=== PATIENT | male | born 1950 | race Caucasian/White ===

== ENCOUNTER → 2016-08-02 | Outpatient (CLI) | payer OTHER | END | disposition home or self-care (01) | LOC: GMAM 13:04 | PROVIDERS: ATTEND Family Medicine | DX: E83.52 Hypercalcemia (principal) ==

== ENCOUNTER → 2016-11-07 | Outpatient (CLI) | payer OTHER ==
--- NOTE | 2016-11-07 17:06 | CT ---
EXAM DESCRIPTION: Abdomen/Pelvis w/wo Contrast CLINICAL HISTORY: 66 years Male GENERALIZED ABDOMINAL PAIN COMPARISON: None. TECHNIQUE: Contiguous axial images obtained through the abdomen and pelvis following IV contrast. Reformatted images obtained. This exam was performed according to our department optimization program which includes automated exposure control, adjustment of the mA and/or kv according to patient size and/or use of iterative reconstruction technique. FINDINGS: The liver appears unremarkable. The spleen and pancreas appear unremarkable. No adrenal masses. No acute abnormality of the kidneys. 4.8 cm cyst on the right and 1 cm cyst on the left. The gallbladder is visualized. No aneurysmal dilatation of the aorta. Calcification in aorta and its branches. No bowel obstruction. The appendix is unremarkable. There is diverticulosis in the colon without evidence of diverticulitis. There is a small fluid attenuation ovoid lesion in the first portion of the duodenum uncertain clinical significance. Question small cyst. This measures 1.5 cm. IMPRESSION: No acute abnormality noted Diverticulosis Cystic lesion in the first portion of the duodenum of uncertain clinical significance. Consider further evaluation with endoscopy Electronically signed by: Bell Welch 11/07/2016 5:04 PM CDT
== END | disposition home or self-care (01) ==
LOC: CT 15:10
PROVIDERS: ATTEND Family Medicine
DX: R10.84 Generalized abdominal pain (principal)

== ENCOUNTER → 2017-01-31 | Outpatient (CLI) | payer MEDICARE, OTHER | END | disposition home or self-care (01) | LOC: GMAM 10:06 | PROVIDERS: ATTEND Family Medicine | DX: E83.52 Hypercalcemia (principal) ==

== ENCOUNTER → 2017-08-02 | Outpatient (CLI) | payer MEDICARE, OTHER | LOC: GMAM 10:43 | PROVIDERS: ATTEND Family Medicine | DX: E83.52 Hypercalcemia (principal); Z12.5 Encounter for screening for malignant neoplasm of prostate | CPT/HCPCS: 83970; G0103 ==

== ENCOUNTER → 2017-11-28 | Outpatient (CLI) | payer MEDICARE, OTHER ==
--- NOTE | 2017-11-28 09:11 | RAD ---
EXAM DESCRIPTION: Wrist,Left 3 Views CLINICAL HISTORY: 67 years Male, LOCALIZED SWELLING , MASS AND LUMP, UNSPECIFIED COMPARISON: None. FINDINGS: Three views of the left wrist show no acute fracture or malalignment. There are fairly advanced degenerative changes involving the first CMC joint including joint space narrowing and osteophyte formation. Less advanced degenerative changes are noted at the triscaphe joint. No focal bone lesion or periostitis. No radiopaque foreign body or soft tissue gas. 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 Electronically signed by: Abel De La Rosa MD 11/28/2017 9:10 AM CDT
== END ==
LOC: RAD 08:01
PROVIDERS: ATTEND Orthopaedic Surgery
DX: Z01.818 Encounter for other preprocedural examination (principal); R22.9 Localized swelling, mass and lump, unspecified

== ENCOUNTER → 2017-12-09 | Outpatient (CLI) | payer MEDICARE, OTHER ==
--- NOTE | 2017-12-09 15:48 | CT ---
Procedure: CT LUNG SCREENING Exam Date: December 09, 2017. Ordering Provider: Jose Antonio Hurd Clinical Indication: LUNG SCREEN This patient meets eligibility criteria for low-dose CT lung cancer screening. 120 pack years. Comparison: CT scan of the abdomen 11/07/2016. Technique: Using a multislice scanner, sequential helical axial imaging was obtained in the thorax, 2.5 mm thickness, 2.5 mm separation, from the level of the thoracic inlet through the lung bases without IV contrast. A low dose protocol was utilized. CTDI: 1.75 mGy. 120. kVp. 45 mA. 2D sagittal and coronal reconstructed images, 6.0 mm thickness, were obtained. This exam was performed according to our departmental dose optimization program which includes use of automated exposure control, adjustment of the mA and/or kV according to patient size and/or use of iterative reconstruction technique. FINDINGS: Lungs and large airways: Minimally prominent airspaces in the bilateral upper lung buchanan less prevalent toward the lung bases bilaterally. Minimal groundglass density in the left retrohilar pulmonary recess of the medial right lower lobe. Slight dilation of the bilateral lower lobe bronchi relatively symmetric. Pleura: No effusion or pneumothorax bilaterally. Mediastinum and alton: Limited by screening technique and lack of IV contrast. No large soft tissue masses or markedly abnormal appearing lymph nodes. Heart and great vessels: Atherosclerotic calcifications in the thoracic aorta. Coronary artery calcifications. Chest wall, lower neck, axillae: Small lymph nodes. Thyroid gland is not enlarged. Tissue around the thyroid gland difficult to visualize due to artifact from shoulder girdles and ribs and spine. Upper abdomen: In the included intraperitoneal cavity, no free fluid or air or focal intraperitoneal mass. Bones: Spondylosis at multiple levels of the thoracic spine with no lytic or blastic lesions. Other osseous structures are grossly normal. IMPRESSION: Early emphysematous changes more prevalent in the upper lobes. Chronic versus acute groundglass density medial right lower lobe in the right retrohilar recess. No abnormal nodules were seen. Lung RADS category Category 1 - No nodule or definitely benign nodules (probability of malignancy less than 1%). Follow-up: Continue annual screening with Low Dose Chest CT in 12 months Electronically signed by: Antonio Bennett MD 12/09/2017 3:46 PM CDT
== END ==
LOC: CT 09:00
PROVIDERS: ATTEND Family Medicine
DX: Z87.891 Personal history of nicotine dependence (principal)

== ENCOUNTER 2017-12-11 05:58 | Day surgery (SDC) | payer MEDICARE, OTHER ==
[2017-12-11] MEDS ORDERED: ceFAZolin SODIUM 1 GM VIAL ONE ×2 (06:19→07:28)
[2017-12-11] MEDS ORDERED: LACTATED RINGERS 1,000 ML ONE (06:19)
[2017-12-11] MEDS ORDERED: SODIUM CHL 0.9% 100ML MINI-BAG 100 ML IVPB ONE (06:19)
[2017-12-11] MEDS ORDERED: VANCOMYCIN HCL INJ 1,000 MG VIAL IVPB ONE (07:28)
[2017-12-11] MEDS ORDERED: BUPIVACAINE 0.25% INJ 30 ML VIAL INJ ONE (07:28)
[2017-12-11] MEDS ORDERED: LIDOCAINE 1% 10 ML VIAL INJ ONE ×2 (07:28→10:00)
[2017-12-11] MEDS ORDERED: MIDAZOLAM INJ 2 MG/2 ML VIAL ONE (09:42)
[2017-12-11] MEDS ORDERED: fentaNYL CITRATE INJ 50 MCG/ML AMP ONE (09:43)
[2017-12-11] MEDS ORDERED: PROPOFOL 200 MG/20 ML VIAL IV ONE (10:00)
[2017-12-11 13:20] VITALS: BP 147/80; TEMP 96.6; O2SAT 100
--- NOTE | 2017-12-13 11:31 | OP ---
DATE OF PROCEDURE: 12/11/17 PREOPERATIVE DIAGNOSIS: 1. Ganglion cyst of the wrist. POSTOPERATIVE DIAGNOSIS: 1. Ganglion cyst of the wrist. PROCEDURE: 1. Excision of cyst. SURGEON: Scott Leach MD INFLATED BALL MOLDER: Antonio Del Cdi CST, SA-C. ANESTHESIA: Local with sedation. COMPLICATIONS: None. FINDINGS: Approximately 1 cm cyst arising from the volar radial aspect of the wrist. INDICATION: Mr. Solano has a slow growing and fluctuating in size mass on his wrist. It caused local irritation and because of the ongoing nature, he requested operative intervention. After discussing the risks, benefits and alternatives to operative intervention, he gave informed consent for excision. PROCEDURE: The patient was brought to the Operating Room and placed in supine position. Sedation was administered and local anesthetic was injected into the operative area. Following that, an incision was made directly over the cystic mass. All soft tissues were dissected off the mass and the cyst was transected at its base. The wound was very thoroughly irrigated and closed with Nylon suture. Sterile dressing was placed. The patient was awoken from anesthesia and then taken to Recovery. POSTOPERATIVE PLAN: He will be doing range of motion of the digits and followup with us in two days. #[id number] [facility]
== END 2017-12-11 11:25 | disposition home or self-care (01) ==
LOC: AMB 05:58
PROVIDERS: ATTEND Orthopaedic Surgery
DX: M67.432 Ganglion, left wrist (principal); I10 Essential (primary) hypertension; K21.9 Gastro-esophageal reflux disease without esophagitis; J44.9 Chronic obstructive pulmonary disease, unspecified; F41.9 Anxiety disorder, unspecified; Z87.891 Personal history of nicotine dependence; Z79.899 Other long term (current) drug therapy
CPT/HCPCS: 01810; 25111; 88304; J0690; J2250; J3010; J3370; J3490; J7050; J7120

== ENCOUNTER → 2018-01-24 | Outpatient (CLI) | payer MEDICARE, OTHER | LOC: GMAM 11:22 | PROVIDERS: ATTEND Family Medicine | DX: I10 Essential (primary) hypertension (principal); Z12.5 Encounter for screening for malignant neoplasm of prostate | CPT/HCPCS: 84439; 84443; G0103 ==

== ENCOUNTER 2018-05-19 09:23 | Emergency (ER) | payer MEDICARE, OTHER ==
[2018-05-19 09:40] VITALS: TEMP 96
--- NOTE | 2018-05-19 09:46 | ED.PDOC ---
History of Present Illness - General Chief Complaint: GI Problem Stated Complaint: blood in stools Time Seen by Provider: 05/19/18 09:45 Information Source: patient Exam Limitations: no limitations - History of Present Illness Initial Comments: Audrey Solano 68 y/o male stated had noted blood in his stool since 17 May 2018 denies hematemesis,abdominal pain,or diarrhea.Had colonoscopy last year done by Dr. Alonzo-proofreader.No dizziness or lightheadedness. Abdominal Pain Onset Location: other - NO ABDOMINAL PAIN Pain Radiation: no radiation Timing/Duration: other - 3 days ago Improving Factors: nothing Worsening Factors: nothing Associated Symptoms: other - see hpi Review of Systems - Review of Systems Constitutional: States: no symptoms reported EENTM: States: no symptoms reported Respiratory: States: no symptoms reported Cardiology: States: no symptoms reported Gastrointestinal/Abdominal: States: see HPI Genitourinary: States: no symptoms reported All other Systems: Reviewed and Negative, No Change from Baseline Past Medical History (General) - Patient Medical History Hx of COPD: Yes Hx Congestive Heart Failure: No Hx Pacemaker: No Hx Hypertension: Yes Hx Diabetes: No Hx Gastroesophageal Reflux: Yes Hx Cancer: No Hx Hepatitis C: No Hx MRSA: No Surgical History: other - ankle - Vaccination History Hx Tetanus, Diphtheria Vaccination: No Hx Influenza Vaccination: Yes Hx Pneumococcal Vaccination: No Immunizations Up to Date: No - Social History Hx Alcohol Use: Yes - wine daily Hx Substance Use: No Hx Substance Use Treatment: No Hx Depression: No Hx Physical Abuse: No Hx Emotional Abuse: No - Activities of Daily Living Patient Lives Alone: No Family Medical History - Family History Mother Family History: Unknown Hx Family Diabetes: Yes - dad Hx Family Cancer: Yes - mom-brain Physical Exam - Physical Exam General Appearance: Alert, Comfortable, No apparent distress Eyes, Ears, Nose, Throat Exam: normal ENT inspection, pale conjunctivae (R), pale conjunctivae (L) Neck: non-tender, full range of motion, supple, normal inspection Respiratory: chest non-tender, lungs clear, normal breath sounds Cardiovascular/Chest: normal peripheral pulses, regular rate, rhythm, no murmur Peripheral Pulses: No deficit Gastrointestinal/Abdominal: non tender, soft Rectal Exam: normal rectal tone, black stool Extremity: no pedal edema, no calf tenderness Neurologic: alert, oriented x 3 Progress - Progress Progress: 05/19/18 10:07 Vital Signs - 8 hr 05/19/18 09:36 Temperature 96.0 F L Pulse Rate [ 72 monitor] Respiratory 18 Rate Blood Pressure 143/90 [LA] O2 Sat by Pulse 100 Oximetry - Results/Orders Results/Orders: 05/19/18 09:56 IV Care:Saline Lock per Protoc QSHIFT 05/19/18 10:00 TYPE AND SCREEN Stat Laboratory Results - last 24 hr 05/19/18 05/19/18 05/19/18 09:40 10:00 11:02 WBC 4.7 L RBC 3.52 L Hgb 10.8 L Hct 32.6 L MCV 92.7 MCH 30.7 MCHC 33.1 RDW 13.7 Plt Count 266 MPV 7.6 Absolute Neuts (auto) 2.50 Absolute Lymphs (auto) 1.50 Absolute Monos (auto) 0.50 Absolute Eos (auto) 0.20 Absolute Basos (auto) 0.00 Neutrophils % 52.6 Lymphocytes % 31.2 Monocytes % 11.5 H Eosinophils % 3.7 Basophils % 1.0 PT 10.4 INR 1.04 PTT (SP) 23.4 Sodium 138 Potassium 3.9 Chloride 104 Carbon Dioxide 24 Anion Gap 13.9 BUN 26 H Creatinine 1.14 BUN/Creatinine Ratio 22.8 H Random Glucose 85 Serum Osmolality 279.7 Calcium 9.6 Magnesium 1.7 L Total Bilirubin 0.6 Direct Bilirubin < 0.1 Indirect Bilirubin 0.5 AST 30 ALT 21 Alkaline Phosphatase 47 Creatine Kinase 144 CK-MB (CK-2) 1.0 CK-MB (CK-2) % Not Reportable Troponin I < 0.02 Serum Total Protein 7.2 Albumin 4.2 Urine Color Yellow Urine Appearance Clear Urine pH 6.5 Ur Specific [place] 1.020 Urine Protein Negative Urine Glucose (UA) Negative Urine Ketones Negative Urine Blood Negative Urine Nitrite Negative Urine Bilirubin Negative Urine Urobilinogen 0.2 Ur Leukocyte Esterase Negative Urine RBC 0 Urine WBC 0 Ur Epithelial Cells 0 Urine Bacteria 0 Stool Occult Blood Positive discuss test result with patient ; talked to Dr. Burrows has appt. at 0815 h 20 May 2018 declined further evaluation by GI specialist and want his primary Md to do the referral Departure - Departure Clinical Impression: Melena Time of Disposition: 13:37 Disposition: Discharge to Home or Self Care Condition: Fair Departure Forms: ED Discharge - Pt. Copy, Patient Portal Self Enrollment Instructions: Bloody Stools, Adult (DC), Bloody Stools Referrals: Lasha Burrows MD [Primary Care Provider] - 1-2 Weeks Home Medications: Ambulatory Orders Ascorbic Acid [Vitamin C] 500 mg PO DAILY 05/05/14 Aspirin [(None)] 325 mg PO QD 05/05/14 Bupropion HCl [Wellbutrin] 100 mg PO DAILY 05/05/14 Calcium Carb 500Mg-Vitamin D [Oscal 500mg w/D] 500 mg PO DAILY 05/05/14 Carisoprodol [Soma] 350 mg PO DAILY 05/05/14 Celecoxib [Celebrex] 200 mg PO DAILY 05/05/14 Cholecalciferol [Vitamin D3] 1,000 unit PO DAILY 05/05/14 Clonazepam 0.5 mg PO BID PRN 05/05/14 Coenzyme Q10 (Ubidecarenone) [Coq-10] 100 mg PO DAILY 05/05/14 Dicyclomine HCl 20 mg PO BID 05/05/14 Fexofenadine-Pseudoephedrine [Mckenzie-D 24 Hour Allergy 180-240 mg] 1 tab PO DAILY 05/05/14 Rcgbqzaqjyd-Gfryazbeavm-Vyd C- [Glucosamine 1500 Complex] 1 cap PO BID 05/05/14 Lubiprostone [Amitiza] 8 mcg PO DAILY 05/05/14 Niacin [Niacin Time Release] 500 mg PO DAILY 05/05/14 Pantoprazole Sodium 40 mg PO DAILY 05/05/14 Rosuvastatin [Crestor] 5 mg PO BEDTIME 05/05/14 Valsartan-Hydrochlorothiazide [Diovan Hct 80-12.5 mg] 1 tab PO DAILY 05/05/14 traMADol 37.5MG/APAP 325MG [Ultracet] 1 tab PO Q6-8H PRN 05/05/14 Additional Instructions: Return to emergency room as needed;Keep appointment with primary Md in am 20 May 2018
--- NOTE | 2018-05-19 10:11 | RAD ---
EXAM DESCRIPTION: Chest,1 View CLINICAL HISTORY: 68 years Male, copd COMPARISON: Previous study March 23, 1999 TECHNIQUE: AP portable chest. FINDINGS: Heart size is prominent with normal pulmonary vascularity. Prominent ascending aorta. No consolidating infiltrate. No pulmonary mass or worrisome nodule. No pneumothorax or pleural effusion. Bones are unremarkable. IMPRESSION: No acute process is identified in the chest. Electronically signed by: Latrell Ramos MD 05/19/2018 10:08 AM [facility]
[2018-05-19] MEDS ORDERED: PANTOPRAZOLE INJECTION 80 MG in SODIUM CHLORIDE 0.9% 100ML 80 ML IVPB ONE (11:24)
[2018-05-19] MEDS ORDERED: SODIUM CHLORIDE 0.9% 100ML 100 ML IVPB ONE (11:32)
[2018-05-19] MEDS ORDERED: PANTOPRAZOLE SODIUM IV 40 MG VIAL ONE (11:32)
[2018-05-19 15:35] VITALS: BP 136/84; O2SAT 98
== END 2018-05-19 13:53 | disposition home or self-care (01) ==
LOC: ER 09:23
DX: K92.1 Melena (principal); I10 Essential (primary) hypertension; K21.9 Gastro-esophageal reflux disease without esophagitis; J44.9 Chronic obstructive pulmonary disease, unspecified; Z79.899 Other long term (current) drug therapy
CPT/HCPCS: 71045; 80048; 80076; 81001; 82270; 82550; 82553; 84484; 85025; 85610; 85730; J7050

== ENCOUNTER → 2018-05-26 | Outpatient (CLI) | payer MEDICARE, OTHER | LOC: GMAM 17:14 | PROVIDERS: ATTEND Family Medicine | DX: K92.2 Gastrointestinal hemorrhage, unspecified (principal) ==

== ENCOUNTER 2018-05-27 10:49 | Outpatient (CLI) | payer MEDICARE, OTHER ==
[2018-05-27] MEDS ORDERED: SODIUM CHLORIDE 0.9% 1000ML 1,000 ML IVS ONE (10:50)
[2018-05-27] MEDS ORDERED: SODIUM CHLORIDE 0.9% 1000ML 1,000 ML IVS PRN (11:54)
[2018-05-27 12:16] VITALS: BP 106/75; TEMP 97.8; O2SAT 100
== END 2018-05-27 16:08 | disposition home or self-care (01) ==
LOC: INFRM 10:49
PROVIDERS: ATTEND Family Medicine
DX: K92.2 Gastrointestinal hemorrhage, unspecified (principal)
CPT/HCPCS: 96360; 96361; G0463; J7030

== ENCOUNTER → 2018-08-19 | Outpatient (CLI) | payer MEDICARE, OTHER ==
--- NOTE | 2018-08-19 17:34 | RAD ---
EXAM DESCRIPTION: Barium Swallow: Rad-Fluoroscopy. CLINICAL HISTORY: DYSPHAGIA COMPARISON: None TECHNIQUE: The patient swallowed barium pill with water. The patient swallowed gas-producing granules, water, and heavy density barium under fluoroscopic visualization. The images were obtained with the patient horizontal and upright. Patient drank medium density barium through a straw in the semi-prone position. 89 fluoroscopic cine loop images. 10 static fluoroscopic images. Total fluoroscopy time was less than 4 minutes. DAP: 36.19 Gy-cm2.. FINDINGS: Patient swallowed the barium pill with water and there was minimal delay at the gastroesophageal junction before the pill passed into the body of the stomach. The swallowing mechanism was grossly normal with no laryngeal aspiration. Patient had swallowed at least twice with each mouthful of barium. Minimal delay in emptying the left piriform sinus. No significant narrowing or dilation of the esophagus. No extrinsic mass effect. No. Mucosal abnormality. In the distal third of the esophagus there were intermittent secondary and tertiary contractions. These were more prominent with patient swallowing in semiprone position. Gastroesophageal reflux was noted to the level of the midesophagus. No hiatal hernia. No mass effect on the stomach IMPRESSION: 1. No significant abnormality in the swallowing mechanism. No laryngeal aspiration. 2. No mass effect. In the esophagus No mucosal abnormality. 3. Secondary and tertiary contractions in the distal third esophagus with mostly with patient in prone position 4. Gastroesophageal reflux to the level of the tracheal chepe when moving in the horizontal position. No hiatal hernia. Electronically signed by: Antonio Bennett MD 08/19/2018 5:32 PM CDT
== END ==
LOC: RAD 09:00
PROVIDERS: ATTEND Internal Medicine Gastroenterology
DX: R13.10 Dysphagia, unspecified (principal); K21.9 Gastro-esophageal reflux disease without esophagitis

== ENCOUNTER → 2018-09-05 | Outpatient (CLI) | payer MEDICARE, OTHER | LOC: CT 11:00 | PROVIDERS: ATTEND Otolaryngology | DX: J38.7 Other diseases of larynx (principal); M47.892 Other spondylosis, cervical region ==

== ENCOUNTER → 2018-12-10 | Outpatient (CLI) | payer MEDICARE, OTHER ==
--- NOTE | 2018-12-11 13:13 | CT ---
Procedure: CT LUNG SCREENING Exam Date: 12/10/2018. Ordering Provider: Jose Antonio Hurd Clinical Indication: PERSONAL HISTORY OF TOBACCO USE . Current cigarette smoker. 120 pack years. This patient meets eligibility criteria for low-dose CT lung cancer screening. Comparison: Low-dose CT lung cancer screening December 09, 2017. Soft tissue neck CT scan with contrast August 2018. Technique: Using a multislice scanner, sequential helical axial imaging was obtained in the thorax, 2.5 mm thickness, 2.5 mm separation, from the level of the thoracic inlet through the lung bases without IV contrast. A low dose protocol was utilized for BMI less than 30: BMI: 29. CTDI: 1.76 mGy. 120. kVp. 45 mA. 66.8 mGy-centimeters. 2D sagittal and coronal reconstructed images, 6.0 mm thickness, were obtained. This exam was performed according to our departmental dose optimization program which includes use of automated exposure control, adjustment of the mA and/or kV according to patient size and/or use of iterative reconstruction technique. Nodule measurements under 10 mm are given as mean value of 3 axes diameters. FINDINGS: Lungs and large airways: Similar pattern seen on the prior study of prominent airspaces in the bilateral upper lung buchanan becoming less prevalent in the lower lung buchanan. Stable groundglass densities bilateral medial retrohilar recesses. Bilateral pleural-parenchymal scarring. Stable 2.5 mm solid subpleural nodule anterior right middle lobe. No abnormal nodules. No masses. No focal infiltrates. Pleura and space: Negative. Mediastinum and alton: evaluation limited by low dose technique and lack of IV contrast. Unremarkable. Heart and great vessels: Atherosclerotic calcifications in the coronary arteries, thoracic aorta and aortic arch. Chest wall, lower neck, axillae: Evaluation also limited by same factors as described above. Small nonreactive axillary nodes. Upper abdomen: Evaluation limited by low-dose technique. Included peritoneal space with normal size and density of the adrenal glands and spleen. Gallbladder visualized. Radiodense material in the stomach. . Osseous structures: Evaluation limited by low dose MIP technique. Minimal spondylosis included thoracic spine. Minimal arthrosis in the manubriosternal joint. No lytic or blastic lesions. IMPRESSION: 1. Minimal emphysematous changes in the upper lung buchanan. No abnormal nodules. No masses. No focal infiltrates. Bilateral nonuniform chronic densities. Stable since the prior study. [facility] Best Practice recommendations: Please see below for Lung RADS category and FOLLOW-UP.* *Lung RADS category Category 1 - No nodule or definitely benign nodules (probability of malignancy less than 1%). Follow-up: Continue annual screening with Low Dose Chest CT in 12 months. 2. No imaging history of patient enrolled in mammographic screening program. Consider enrolling the patient in [facility] breast screening program, if not enrolled in the past 12 months. Electronically signed by: Antonio Bennett MD 12/11/2018 1:11 PM CDT
== END ==
LOC: CT 09:12
PROVIDERS: ATTEND Family Medicine
DX: Z87.891 Personal history of nicotine dependence (principal); J43.9 Emphysema, unspecified

== ENCOUNTER → 2019-02-05 | Outpatient (CLI) | payer MEDICARE, OTHER | LOC: GMAM 14:33 | PROVIDERS: ATTEND Family Medicine | DX: M25.50 Pain in unspecified joint (principal) ==

== ENCOUNTER → 2019-07-08 | Outpatient (CLI) | payer MEDICARE, OTHER ==
--- NOTE | 2019-07-08 10:04 | CT ---
EXAM DESCRIPTION: Abdoment/Pelvis w/o Contrast CLINICAL HISTORY: 69 years Male, GENERALIZED ABDOMINAL PAIN COMPARISON: CT abdomen pelvis dated 11/07/2016. TECHNIQUE: Contiguous 3 mm axial images were obtained from the lung bases to the level of the proximal femora without the administration of intravenous or oral contrast. Sagittal and coronal reconstructions were reviewed. FINDINGS: Limited evaluation of the solid organs due to the lack of intravenous contrast. THORAX: The imaged lower thorax demonstrates no gross abnormality. LIVER: The liver demonstrates normal size and density with no intrahepatic biliary ductal dilatation. GALLBLADDER: Grossly unremarkable. PANCREAS: Appears normal with no cystic or solid lesions. SPLEEN: Normal ADRENAL GLANDS: Normal with no nodules or masses. KIDNEYS: Both kidneys are symmetric in size and contour with no hydronephrosis or nephrolithiasis or perinephric fluid collections. A simple cyst is noted in the inferior pole of the right kidney. The visualized ureters appear grossly unremarkable. STOMACH: Small hiatal hernia with reflux. The stomach is not well-distended limiting detailed evaluation. SMALL BOWEL: The small bowel loops demonstrate variable degrees of distention with no abnormal dilatation or other signs to suggest bowel obstruction. LARGE BOWEL: Multiple diverticula are noted throughout the visualized colon, with no acute inflammation. The appendix is well-visualized and appears normal No evidence of free intraperitoneal air or fluid. RETROPERITONEUM: The abdominal aorta is nonaneurysmal with moderate atherosclerosis. The inferior vena cava is normal in size and caliber. No abnormally enlarged retroperitoneal lymph nodes are identified. URINARY BLADDER:The urinary bladder is well-distended with no gross abnormality. The prostate gland and seminal vesicles appear normal. ADDITIONAL FINDINGS: Fat-containing right inguinal hernia. BONES: Moderate degenerative changes are identified in the visualized bones. Stable sclerotic focus in the anterior aspect of the right iliac bone probably representing a bone island. IMPRESSION: 1. Small hiatal hernia with reflux. 2. Colonic diverticulosis. 3. Fat-containing right inguinal hernia. This exam was performed according to our departmental dose-optimization program, which includes automated exposure control, adjustment of the mA and/or kV according to patient size and/or use of iterative reconstruction technique. Electronically signed by: Monserrat Garcia MD 07/08/2019 10:03 AM CDT
== END ==
LOC: CT 09:20
PROVIDERS: ATTEND Family Medicine
DX: K44.9 Diaphragmatic hernia without obstruction or gangrene (principal); K40.90 Unilateral inguinal hernia, without obstruction or gangrene, not specified as recurrent; K21.9 Gastro-esophageal reflux disease without esophagitis; K57.30 Diverticulosis of large intestine without perforation or abscess without bleeding

== ENCOUNTER → 2019-08-07 | Outpatient (CLI) | payer MEDICARE, OTHER ==
--- NOTE | 2019-08-07 15:28 | RAD ---
EXAM DESCRIPTION: Shoulder,Right 2 or More Views CLINICAL HISTORY: 69 years Male, SHOULDER PAIN COMPARISON: None available. FINDINGS: The visualized bones are well-mineralized.No acute fracture or dislocation. The soft tissues appear grossly unremarkable. Mild to moderate acromioclavicular joint osteoarthritis. IMPRESSION: [id number] acromioclavicular joint osteoarthritis. Electronically signed by: Monserrat Garcia MD 08/07/2019 3:26 PM CDT
--- NOTE | 2019-08-07 15:28 | RAD ---
EXAM DESCRIPTION: Elbow,Right 3 Views CLINICAL HISTORY: 69 years Male, ELBOW PAIN COMPARISON: None available. FINDINGS: The visualized bones are well-mineralized.No acute fracture or dislocation. Radiocapitellar osteoarthritis. Spurring of the lateral humeral epicondyle is suggestive of epicondylitis. Ulnotrochlear degeneration is also identified. The soft tissues appear grossly unremarkable. IMPRESSION: Osteoarthritis of the right elbow. Lateral epicondylitis. Electronically signed by: Monserrat Garcia MD 08/07/2019 3:26 PM CDT
== END ==
LOC: RAD 09:06
PROVIDERS: ATTEND Orthopaedic Surgery
DX: M19.011 Primary osteoarthritis, right shoulder (principal); M19.021 Primary osteoarthritis, right elbow; M77.11 Lateral epicondylitis, right elbow

== ENCOUNTER 2019-08-22 10:46 | Emergency (ER) | payer MEDICARE, OTHER ==
[2019-08-22] MEDS ORDERED: NEOMYCIN-BACITRACIN-POLYMYXIN 0.9 GM UD TOP ONE (11:00)
[2019-08-22] MEDS ORDERED: SULFA/TRIMETH 800/160 (DS) TAB 1 EA TAB PO ONE (11:01)
[2019-08-22] MEDS ORDERED: TETANUS,DIPHTHERIA,PERTUSSIS 1 EA SYG IM ONE (11:01)
[2019-08-22 11:04] VITALS: BP 157/100; TEMP 97.9; O2SAT 98
--- NOTE | 2019-08-22 11:04 | ED.PDOC ---
History of Present Illness - General Chief Complaint: Laceration Stated Complaint: L pinky finger avulsion/tear Time Seen by Provider: 08/22/19 10:55 Source: patient Exam Limitations: no limitations - History of Present Illness Initial Comments: The patient is a 69-year-old male presented emergency room secondary to having accidentally cut his finger with a fan. It is the fifth digit of the left hand. There is some maceration of the skin towards the tip. There is actually nothing to sew closed. It is hemostatic at this point and has been clean. Sensation is mildly decreased. No evidence of any injury to the distal interphalangeal joint or towards the nail base itself. Estimated blood loss prior to arrival was 5 cc. Patient is also having a mild COPD exacerbation related to mowing yesterday. No evidence of distress. Timing/Duration: momentarily Severity: mild Improving Factors: nothing Worsening Factors: nothing Associated Symptoms: denies symptoms Allergies/Adverse Reactions: Allergies NO KNOWN ALLERGY Allergy (Unverified 05/19/18 09:39) Home Medications: Ambulatory Orders Ascorbic Acid [Vitamin C] 500 mg PO DAILY 05/05/14 Aspirin [(None)] 325 mg PO QD 05/05/14 Bupropion HCl [Wellbutrin] 100 mg PO DAILY 05/05/14 Calcium Carb 500Mg-Vitamin D [Oscal 500mg w/D] 500 mg PO DAILY 05/05/14 Carisoprodol [Soma] 350 mg PO DAILY 05/05/14 Celecoxib [Celebrex] 200 mg PO DAILY 05/05/14 Cholecalciferol [Vitamin D3] 1,000 unit PO DAILY 05/05/14 Clonazepam 0.5 mg PO BID PRN 05/05/14 Coenzyme Q10 (Ubidecarenone) [Coq-10] 100 mg PO DAILY 05/05/14 Dicyclomine HCl 20 mg PO BID 05/05/14 Fexofenadine-Pseudoephedrine [Mckenzie-D 24 Hour Allergy 180-240 mg] 1 tab PO DAILY 05/05/14 Owdomjprzcu-Kdtnptcbxoe-Oyz C- [Glucosamine 1500 Complex] 1 cap PO BID 05/05/14 Lubiprostone [Amitiza] 8 mcg PO DAILY 05/05/14 Niacin [Niacin Time Release] 500 mg PO DAILY 05/05/14 Pantoprazole Sodium 40 mg PO DAILY 05/05/14 Rosuvastatin [Crestor] 5 mg PO BEDTIME 05/05/14 Valsartan-Hydrochlorothiazide [Diovan Hct 80-12.5 mg] 1 tab PO DAILY 05/05/14 traMADol 37.5MG/APAP 325MG [Ultracet] 1 tab PO Q6-8H PRN 05/05/14 Sulfa/Trimeth 800/160 (Ds) Tab [Bactrim DS Tab] 1 ea PO DAILY #3 tab 08/22/19 predniSONE [Prednisone] 20 mg PO DAILY #3 tab 08/22/19 Review of Systems - Review of Systems Constitutional: States: no symptoms reported EENTM: States: no symptoms reported Respiratory: States: cough, short of breath - Mild, wheezing Cardiology: States: no symptoms reported Gastrointestinal/Abdominal: States: no symptoms reported Genitourinary: States: no symptoms reported Musculoskeletal: States: no symptoms reported Skin: States: see HPI Neurological: States: no symptoms reported Endocrine: States: no symptoms reported All other Systems: No Change from Baseline Past Medical History (General) - Patient Medical History Hx of COPD: Yes Hx Congestive Heart Failure: No Hx Pacemaker: No Hx Hypertension: Yes Hx Diabetes: No Hx Gastroesophageal Reflux: Yes Hx Cancer: No Hx Hepatitis C: No Hx MRSA: No - Vaccination History Hx Tetanus, Diphtheria Vaccination: No Hx Influenza Vaccination: Yes Hx Pneumococcal Vaccination: No - Social History Hx Alcohol Use: Yes - wine daily Hx Substance Use: No Hx Substance Use Treatment: No Hx Depression: No Hx Physical Abuse: No Hx Emotional Abuse: No Family Medical History - Family History Mother Family History: Unknown Hx Family Diabetes: Yes - dad Hx Family Cancer: Yes - mom-brain Physical Exam - Physical Exam General Appearance: Alert, Anxious, No apparent distress Eye Exam: bilateral normal Ears, Nose, Throat: hearing grossly normal, normal ENT inspection Neck: non-tender, supple Respiratory: no accessory muscle use, wheezing Cardiovascular/Chest: normal peripheral pulses, regular rate, rhythm, no edema Peripheral Pulses: radial,right: 2+, radial,left: 2+ Gastrointestinal/Abdominal: non tender, soft Rectal Exam: deferred Extremity: normal range of motion, no pedal edema, normal capillary refill Neurologic: master barber II-XII nml as tested, alert, normal mood/affect, oriented x 3, other - Mild decrease sensation to the tip of the pinky finger. Skin Exam: other - Maceration to the skin of the tip of the left pinky finger. There is nothing to sew closed at this point. It will have to heal by secondary intention. Comments: Vital Signs - 24 hr 08/22/19 10:50 Temperature 97.9 F Pulse Rate [ 83 Pulse ox] Respiratory 16 Rate Blood Pressure 157/100 [L brachial] O2 Sat by Pulse 98 Oximetry Progress - Progress Progress: 08/22/19 11:05 The patient is a 69-year-old male presented emergency room secondary to sustaining laceration to the tip of the pinky finger on his left hand due to an accident with a fan. No evidence of underlying musculoskeletal damage. He may have a small area of numbness once the wound heals. There is nothing to sew closed on this patient, it will need to heal by secondary intention. Triple antibiotic ointment and Band-Aids can be used to keep it covered. Can be washed twice daily with an antibacterial soap and water. The patient will be placed on 3 days of Bactrim for prophylactic purposes. Additionally the patient is having a mild COPD exacerbation. He will be written for 3 days of oral prednisone to take in combination with his nebulizer treatments. ER warnings are given. Keep routine follow-up with primary care doctor. Monitor for any evidence of infection. jessica [email or web address] [email or web address] Departure - Departure Clinical Impression: Accidental laceration, COPD with exacerbation Disposition: Discharge to Home or Self Care Condition: Fair Departure Forms: ED Discharge - Pt. Copy, Patient Portal Self Enrollment Diet: regular diet Activity: increase activity as tolerated Referrals: Lasha Kenney MD [Primary Care Provider] - 1-2 Weeks Prescriptions: predniSONE [Prednisone] 20 mg PO DAILY #3 tab Sulfa/Trimeth 800/160 (Ds) Tab [Bactrim DS Tab] 1 ea PO DAILY #3 tab Home Medications: Ambulatory Orders Ascorbic Acid [Vitamin C] 500 mg PO DAILY 05/05/14 Aspirin [(None)] 325 mg PO QD 05/05/14 Bupropion HCl [Wellbutrin] 100 mg PO DAILY 05/05/14 Calcium Carb 500Mg-Vitamin D [Oscal 500mg w/D] 500 mg PO DAILY 05/05/14 Carisoprodol [Soma] 350 mg PO DAILY 05/05/14 Celecoxib [Celebrex] 200 mg PO DAILY 05/05/14 Cholecalciferol [Vitamin D3] 1,000 unit PO DAILY 05/05/14 Clonazepam 0.5 mg PO BID PRN 05/05/14 Coenzyme Q10 (Ubidecarenone) [Coq-10] 100 mg PO DAILY 05/05/14 Dicyclomine HCl 20 mg PO BID 05/05/14 Fexofenadine-Pseudoephedrine [Mckenzie-D 24 Hour Allergy 180-240 mg] 1 tab PO DAILY 05/05/14 Ddxwchpbjde-Larutagnzsr-Rnw C- [Glucosamine 1500 Complex] 1 cap PO BID 05/05/14 Lubiprostone [Amitiza] 8 mcg PO DAILY 05/05/14 Niacin [Niacin Time Release] 500 mg PO DAILY 05/05/14 Pantoprazole Sodium 40 mg PO DAILY 05/05/14 Rosuvastatin [Crestor] 5 mg PO BEDTIME 05/05/14 Valsartan-Hydrochlorothiazide [Diovan Hct 80-12.5 mg] 1 tab PO DAILY 05/05/14 traMADol 37.5MG/APAP 325MG [Ultracet] 1 tab PO Q6-8H PRN 05/05/14 Sulfa/Trimeth 800/160 (Ds) Tab [Bactrim DS Tab] 1 ea PO DAILY #3 tab 08/22/19 predniSONE [Prednisone] 20 mg PO DAILY #3 tab 08/22/19 Additional Instructions: The patient is a 69-year-old male presented emergency room secondary to sustaining laceration to the tip of the pinky finger on his left hand due to an accident with a fan. No evidence of underlying musculoskeletal damage. He may have a small area of numbness once the wound heals. There is nothing to sew closed on this patient, it will need to heal by secondary intention. Triple antibiotic ointment and Band-Aids can be used to keep it covered. Can be washed twice daily with an antibacterial soap and water. The patient will be placed on 3 days of Bactrim for prophylactic purposes. Additionally the patient is having a mild COPD exacerbation. He will be written for 3 days of oral prednisone to take in combination with his nebulizer treatments. ER warnings are given. Keep routine follow-up with primary care doctor. Monitor for any evidence of infection.
== END 2019-08-22 11:29 | disposition home or self-care (01) ==
LOC: ER 10:46
DX: S61.217A Laceration without foreign body of left little finger without damage to nail, initial encounter (principal); J44.1 Chronic obstructive pulmonary disease with (acute) exacerbation; I10 Essential (primary) hypertension; Z79.899 Other long term (current) drug therapy; W22.8XXA Striking against or struck by other objects, initial encounter; Y92.9 Unspecified place or not applicable

== ENCOUNTER → 2019-12-16 | Outpatient (CLI) | payer MEDICARE, OTHER ==
--- NOTE | 2019-12-16 13:59 | CT ---
Procedure: CT LUNG SCREENING Exam Date: December 16, 2019. Ordering Provider: Jose Antonio Hurd Clinical Indication: PERSONAL HISTORY OF TOBACCO DEPENDENCE . Smoking cessation x 2.5 years. 40 pack years This patient meets eligibility criteria for low-dose CT lung cancer screening. Comparison: Low-dose CT lung cancer screening examination November 2018. Lung rads 1. Technique: Using a multislice scanner, sequential helical axial imaging was obtained in the thorax, 2.5 mm thickness, 2.5 mm separation, from the level of the thoracic inlet through the lung bases without IV contrast. A low dose protocol was utilized for BMI less than 30: BMI: 25.1. CTDI: 1.76 mGy. 120. kVp. 45 mA. DLP 66 mGy-cm. 2D sagittal and coronal reconstructed images, 6.0 mm thickness, were obtained. This exam was performed according to our departmental dose optimization program which includes use of automated exposure control, adjustment of the mA and/or kV according to patient size and/or use of iterative reconstruction technique. Nodule measurements under 10 mm are given as mean value of 3 axes diameters. FINDINGS: Lungs and large airways: Bilateral small blebs in the parenchyma predominantly centrilobular. Stable since the prior examination. Subpleural nodule in the anterior right middle lobe approximately 2 mm diameter stable on axial series 2, image 78, possible early calcification. Thickening of the inferior right major fissure stable. Bilateral vague peripheral density with no definite infiltrates is unchanged. Subpleural groundglass nodule versus focal pleural thickening in the lateral recess of the lateral right lower lobe on series #2, image 97 stable since the prior study. Pleural parenchymal scarring left lower lobe superior segment apex and pleural parenchymal scarring in the medial base of the right middle lobe. No abnormal nodules and no mass. No new or focal infiltrates. Pleura and space: Bilateral pleural thickening as described with no acute process. Mediastinum and alton: evaluation limited by low dose technique and lack of IV contrast. No enlarged nodes are no dominant soft tissue masses. No interval change. Heart and great vessels: Coronary artery calcifications and atherosclerotic calcifications in the aortic arch and descending thoracic aorta. Stable since the prior study. Chest wall, lower neck, axillae: Evaluation also limited by same factors as described above. Normal size axillary nodes. No dominant soft tissue masses. Upper abdomen: Evaluation limited by low-dose technique. No free air or free fluid in the included peritoneal space. Spleen and adrenal glands normal size and density. Osseous structures: Evaluation limited by low dose MIP technique. Gallbladder visualized. Spondylosis upper and mid thoracic spine. Arthrosis glenohumeral joint clavicle and sternoclavicular joints. Also the manubriosternal joint. IMPRESSION: Stable groundglass nodule and small nodule below the size of clinical concern. No new nodules or masses. Emphysematous changes are stable. [facility] Best Practice Recommendations: please see below for Lung RADS category and FOLLOW-UP.* *Lung RADS category Category 1 - No nodule or definitely benign nodules (probability of malignancy less than 1%). Follow-up: Continue annual screening with Low Dose Chest CT in 12 months. Electronically signed by: Antonio Bennett MD 12/16/2019 1:57 PM CDT
== END ==
LOC: CT 10:00
PROVIDERS: ATTEND Family Medicine
DX: Z87.891 Personal history of nicotine dependence (principal); R91.8 Other nonspecific abnormal finding of lung field; J43.9 Emphysema, unspecified

== ENCOUNTER → 2020-02-03 | Outpatient (CLI) | payer MEDICARE, OTHER | LOC: GMAM 11:49 | PROVIDERS: ATTEND Family Medicine | DX: Z12.5 Encounter for screening for malignant neoplasm of prostate (principal); E55.9 Vitamin D deficiency, unspecified; R53.83 Other fatigue; E78.2 Mixed hyperlipidemia; I10 Essential (primary) hypertension | CPT/HCPCS: 82306; 84403; G0103 ==